=== PATIENT | female | born 1955 | race Hispanic/Latino ===

== ENCOUNTER 2020-06-21 07:10 | Day surgery (SDC) | payer OTHER ==
[2020-06-19 10:20] VITALS: BP 149/64
[2020-06-19 10:44] LABS: BASOPHILS % (AUTO) 0.4 % (0.0-5.0); EOSINOPHILS % (AUTO) 1.2 % (0.0-8.0); HEMATOCRIT 42.4 % (36-48); LYMPHOCYTES % (AUTO) 39.9 % (21.0-51.0); MEAN CORPUSCULAR HEMOGLOBIN 29.4 pg (27.0-33.0); MEAN CORPUSCULAR HGB CONC 33.3 g/dL (32.0-36.0); MEAN CORPUSCULAR VOLUME 88.3 fL (79-99); MONOCYTES % (AUTO) 5.3 % (3.0-13.0); NEUTROPHILS % (AUTO) 52.8 % (40.0-77.0); PLATELET COUNT (AUTO) 277 K/uL (130-400); RED CELL DISTRIBUTION WIDTH 13.5 % (11.0-15.5); WHITE BLOOD COUNT (AUTO) 6.7 K/uL (4.8-10.8)
[2020-06-19 10:54] LABS: CREATININE 0.9 mg/dL (0.5-1.5)
[~2020-06-21] VITALS: Ht 162.6 cm; Wt 67.1 kg
[2020-06-21] VITALS (16 sets, daily range): BP systolic 120–147; BP diastolic 57–82
[~2020-06-21 07:10] MED LIST: CEFAZOLIN SODIUM 1 GM VIAL IVP SCH; CHOL500050 PO; ESOM40CA PO; LEVO75CA5 PO; TOPI100T37 PO; TOPI50TA24 PO
[2020-06-21] MEDS ORDERED: LACTATED RINGERS 1000ML 1,000 ML IV ONE (08:18)
[2020-06-21] MEDS ORDERED: EPINEPHRINE 1 MG/ML 30ML VIAL IJ ONE (10:02)
[2020-06-21] MEDS ORDERED: GLYCOPYRROLATE 1 MG/5 ML SYRINGE ONE (10:18)
[2020-06-21] MEDS ORDERED: MIDAZOLAM HCL 1 MG/ML 2ML VIAL ONE ×2 (10:18→10:44)
[2020-06-21] MEDS ORDERED: DEXAMETHASONE SOD PHOSPHATE 10MG/ML 1ML VIAL ONE (10:18)
[2020-06-21] MEDS ORDERED: SUCCINYLCHOLINE CHLORIDE 20 MG/ML 10 ML VIAL ONE (10:18)
[2020-06-21] MEDS ORDERED: LIDOCAINE PF 100MG/5ML (2%) SYRINGE 5ML ONE (10:18)
[2020-06-21] MEDS ORDERED: PROPOFOL 10 MG/ML 20ML VIAL IV ONE (10:19)
[2020-06-21] MEDS ORDERED: FENTANYL CITRATE PF 50 MCG/1 ML 2ML VIAL ONE (10:19)
[2020-06-21] MEDS ORDERED: NEOSTIGMINE 5MG/5ML SYR IV ONE (10:19)
[2020-06-21] MEDS ORDERED: ONDANSETRON 4MG INJ ONE (10:19)
[2020-06-21] MEDS ORDERED: ROCURONIUM 10MG/1ML SYR 10 MG/ML ML ONE (10:19)
[2020-06-21] MEDS ORDERED: ALBUMIN (HUMAN) 25% 100 ML IV ONE (10:25)
[2020-06-21] MEDS ORDERED: BUPIVACAINE/PF 0.25% 30ML VIAL IJ ONE (10:27)
[2020-06-21] MEDS ORDERED: HYDR-4060 PO (13:32)
[2020-06-21] MEDS ORDERED: MELO15TA12 PO (13:32)
[2020-06-21] MEDS ORDERED: CEPH500B PO (13:32)
== END 2020-06-21 15:23 | disposition home or self-care (01) ==
LOC: DAH 07:10
PROVIDERS: ATTEND Orthopaedic Surgery
DX: M19.012 Primary osteoarthritis, left shoulder (principal); Z20.828 Contact with and (suspected) exposure to other viral communicable diseases; M75.02 Adhesive capsulitis of left shoulder; M75.82 Other shoulder lesions, left shoulder; G89.29 Other chronic pain; G43.909 Migraine, unspecified, not intractable, without status migrainosus; F41.9 Anxiety disorder, unspecified; F32.9 Major depressive disorder, single episode, unspecified; K21.9 Gastro-esophageal reflux disease without esophagitis; M79.7 Fibromyalgia; E03.9 Hypothyroidism, unspecified; G47.00 Insomnia, unspecified; Z90.49 Acquired absence of other specified parts of digestive tract; Z90.710 Acquired absence of both cervix and uterus; Z90.89 Acquired absence of other organs; Z98.890 Other specified postprocedural states; Z82.49 Family history of ischemic heart disease and other diseases of the circulatory system
CPT/HCPCS: 29824; 29826; 36415; 64415; 76942; 80048; 85025; 87426; 93005; A4215; A4221; A4222; A4223; A4565; A4600; A4649 ×3; A4930 ×2; A5120; A6204; G0168; J0171; J0330; J0690; J1030; J1100; J2001; J2250 ×2; J2405; J2704; J2710; J3010; J3490; J7120 ×2; P9047; U0003

== ENCOUNTER → 2022-12-26 | Outpatient (CLI) | payer OTHER ==
[~2022-12-26] MED LIST changes: -CEFAZOLIN SODIUM 1 GM VIAL IVP SCH; +CEPH500B PO; +HYDR-4060 PO; +MELO15TA12 PO; +TOPI-255 PO; -TOPI50TA24 PO
== END | disposition home or self-care (01) ==
LOC: OIH 09:11
PROVIDERS: ATTEND Internal Medicine
DX: Z13.6 Encounter for screening for cardiovascular disorders (principal); K44.9 Diaphragmatic hernia without obstruction or gangrene; R93.1 Abnormal findings on diagnostic imaging of heart and coronary circulation
CPT/HCPCS: 75571

== ENCOUNTER → 2023-05-12 | Outpatient (CLI) | payer OTHER ==
[~2023-05-12] MED LIST changes: -TOPI-255 PO; +TOPI-97 PO
== END | disposition home or self-care (01) ==
LOC: RAH 13:31
PROVIDERS: ATTEND Internal Medicine
DX: G93.0 Cerebral cysts (principal); G06.0 Intracranial abscess and granuloma
CPT/HCPCS: 70450